=== PATIENT | female | born 2000 | race Caucasian/White ===

== ENCOUNTER 2024-09-10 05:38 | Emergency (ER) | payer OTHER ==
[2024-09-10 05:47] VITALS: BMI 26.6
[2024-09-10] MEDS ORDERED: ACETAMINOPHEN 325 MG TABLET (FP) ONE (06:25)
[2024-09-10] MEDS: ACETAMINOPHEN 500 MG TABLET (FP) PO ONE (06:32)
[2024-09-10 07:50] VITALS: BP 111/65; PULSE 102; RESP 19; TEMP 99.8
== END 2024-09-10 08:00 | disposition home or self-care (01) ==
LOC: JER 05:38
DX: J10.1 Influenza due to other identified influenza virus with other respiratory manifestations (principal); R05.9 Cough, unspecified; R09.81 Nasal congestion; R51.9 Headache, unspecified; M79.10 Myalgia, unspecified site; R50.9 Fever, unspecified; Z20.822 Contact with and (suspected) exposure to COVID-19
CPT/HCPCS: 0241U-QW; 87651; 99283-25